=== PATIENT | male | born 1935 | race Caucasian/White ===

== ENCOUNTER 2019-10-12 08:06 | Emergency (ER) | payer MEDICARE ==
[2019-10-12 09:51] LABS: BASOPHILS % (AUTO) 0.5 % (0.0-5.0); EOSINOPHILS % (AUTO) 2.2 % (0.0-8.0); HEMATOCRIT 42.7 % (42-54); LYMPHOCYTES % (AUTO) 18.5 % (21.0-51.0); MEAN CORPUSCULAR VOLUME 93.8 fL (79-99); MONOCYTES % (AUTO) 7.9 % (3.0-13.0); NEUTROPHILS % (AUTO) 70.6 % (40.0-77.0); PLATELET COUNT (AUTO) 289 K/uL (130-400); RED BLOOD CELL COUNT(AUTO) 4.55 MIL/uL (4.50-6.20); RED CELL DISTRIBUTION WIDTH 12.6 % (11.0-15.5); WHITE BLOOD COUNT (AUTO) 5.8 K/uL (4.8-10.8)
[2019-10-12 10:01] LABS: CREATININE 1.2 mg/dL (0.5-1.5); POTASSIUM 4.8 mmol/L (3.5-5.1)
[2019-10-12 10:06] LABS: ALBUMIN 3.7 g/dL (3.5-5.0); BILIRUBIN,TOTAL 0.6 mg/dL (0.2-1.0); INR 1.03 (0.85-1.15); PARTIAL THROMBOPLASTIN TIME 25.5 SEC (26.3-35.5); PROTHROMBIN TIME 10.8 SEC (9.6-11.6)
== END 2019-10-12 12:01 | disposition left against medical advice (07) ==
LOC: EDH 08:06
DX: M79.89 Other specified soft tissue disorders (principal); Z90.49 Acquired absence of other specified parts of digestive tract; Z87.891 Personal history of nicotine dependence
CPT/HCPCS: 36415; 71046; 74176; 80053; 82550; 85025; 85378; 85610; 85730; 93971

== ENCOUNTER 2020-04-15 11:10 | Inpatient (IN) | payer MEDICARE ==
[~2020-04-15] VITALS: Ht 175.3 cm; Wt 70.8 kg
[2020-04-15 12:07] LABS: BASOPHILS % (AUTO) 0.3 % (0.0-5.0); EOSINOPHILS % (AUTO) 0.4 % (0.0-8.0); HEMATOCRIT 43.6 % (42-54); LYMPHOCYTES % (AUTO) 15.5 % (21.0-51.0); MEAN CORPUSCULAR HEMOGLOBIN 31.9 pg (27.0-33.0); MEAN CORPUSCULAR HGB CONC 33.5 g/dL (32.0-36.0); MEAN CORPUSCULAR VOLUME 95.2 fL (79-99); MONOCYTES % (AUTO) 6.1 % (3.0-13.0); PLATELET COUNT (AUTO) 314 K/uL (130-400); RED BLOOD CELL COUNT(AUTO) 4.58 MIL/uL (4.50-6.20); RED CELL DISTRIBUTION WIDTH 13.2 % (11.0-15.5); WHITE BLOOD COUNT (AUTO) 11.1 K/uL (4.8-10.8)
[2020-04-15 12:19] LABS: PROTHROMBIN TIME 10.8 SEC (9.6-11.6)
[2020-04-15 12:21] LABS: CREATININE 1.3 mg/dL (0.5-1.5); POTASSIUM 4.2 mmol/L (3.5-5.1)
[2020-04-15 12:24] LABS: ALBUMIN 3.7 g/dL (3.5-5.0); BILIRUBIN,TOTAL 0.6 mg/dL (0.2-1.0)
[2020-04-15] MEDS ORDERED: ONDANSETRON HCL 4 MG/2 ML VIAL ONE (12:30)
[2020-04-15] MEDS ORDERED: MORPHINE SULFATE 4 MG/1ML SYG ONE ×2 (12:31→15:54)
[2020-04-15] MEDS ORDERED: HYDRALAZINE HCL 20 MG/ML VIAL IV PRN (15:30)
[2020-04-15] MEDS ORDERED: HYDROMORPHONE HCL 0.5 MG/0.5 ML ML IV PRN (15:30)
[2020-04-15] MEDS ORDERED: ONDANSETRON HCL 4 MG/2 ML VIAL IV PRN (15:30)
[2020-04-15] MEDS ORDERED: FAMOTIDINE/PF 20 MG/2 ML VIAL IV ONE (20:59)
[2020-04-15] MEDS ORDERED: HEPARIN SODIUM 5000UNIT/ML 1ML VIAL ONE (20:59)
[2020-04-15] MEDS: HEPARIN SODIUM 5000UNIT/ML 1ML VIAL SQ SCH (21:00)
[2020-04-16 00:20] VITALS: BP 143/75
[2020-04-16] MEDS ORDERED: ENZA40CA PO (00:41)
[2020-04-16] MEDS: SODIUM CHLORIDE 0.9% 1000ML 1,000 ML IV SCH ×3 (02:29→18:06)
[2020-04-16] MEDS: MORPHINE SULFATE 2 MG/ML 1ML SYG IV PRN ×2 (02:30→21:26)
[2020-04-16 03:54] VITALS: BP 138/76
[2020-04-16] MEDS: HYDROMORPHONE HCL 2 MG/ML VIAL IVP PRN ×4 (04:15→23:53)
[2020-04-16 08:00] VITALS: BP 136/67
[2020-04-16] MEDS ORDERED: FAMOTIDINE/PF 20 MG/2 ML VIAL IV SCH (09:00)
[2020-04-16] MEDS: HEPARIN SODIUM 5000UNIT/ML 1ML VIAL SQ SCH ×3 (09:08→19:51)
--- NOTE | 2020-04-16 10:36 | NUR ---
COVID RAPID SCREEN IS NEGATIVE, DR INGRAM INFORMED.
[2020-04-16 12:05] VITALS: BP 134/69
[2020-04-16 16:00] VITALS: BP 140/75
[2020-04-16 19:00] VITALS: BP 142/86
[2020-04-17] VITALS (25 sets, daily range): BP systolic 112–156; BP diastolic 59–83
[2020-04-17] MEDS: HYDROMORPHONE HCL 2 MG/ML VIAL IVP PRN ×2 (00:58→06:07)
[2020-04-17 04:38] LABS: CREATININE 0.9 mg/dL (0.5-1.5); POTASSIUM 3.5 mmol/L (3.5-5.1)
[2020-04-17 04:47] LABS: ALBUMIN 3.3 g/dL (3.5-5.0); BILIRUBIN,TOTAL 1.2 mg/dL (0.2-1.0); TOTAL PROTEIN, SERUM 7.7 g/dL (6.0-8.3)
[2020-04-17 05:00] LABS: BASOPHILS % (AUTO) 0.4 % (0.0-5.0); EOSINOPHILS % (AUTO) 1.6 % (0.0-8.0); LYMPHOCYTES % (AUTO) 24.4 % (21.0-51.0); MEAN CORPUSCULAR HEMOGLOBIN 32.2 pg (27.0-33.0); MEAN CORPUSCULAR HGB CONC 33.7 g/dL (32.0-36.0); MEAN CORPUSCULAR VOLUME 95.6 fL (79-99); MONOCYTES % (AUTO) 9.2 % (3.0-13.0); PLATELET COUNT (AUTO) 227 K/uL (130-400); RED BLOOD CELL COUNT(AUTO) 4.29 MIL/uL (4.50-6.20); RED CELL DISTRIBUTION WIDTH 12.9 % (11.0-15.5); WHITE BLOOD COUNT (AUTO) 8.3 K/uL (4.8-10.8)
[2020-04-17] MEDS ORDERED: CEFAZOLIN SODIUM 1 GM VIAL ONE (07:06)
[2020-04-17] MEDS ORDERED: LACTATED RINGERS 1000ML 1,000 ML IV ONE (07:09)
[2020-04-17] MEDS: CEFAZOLIN SODIUM 1 GM VIAL IVP PRN ×2 (07:19→08:00)
[2020-04-17] MEDS ORDERED: LIDOCAINE PF 2% 5ML ABBOJECT ONE (07:26)
[2020-04-17] MEDS ORDERED: ROPIVACAINE 0.5% 5MG/ML 30ML IJ ONE ×2 (07:26→07:32)
[2020-04-17] MEDS ORDERED: ONDANSETRON HCL 4 MG/2 ML VIAL ONE (07:27)
[2020-04-17] MEDS ORDERED: PROPOFOL 10 MG/ML 20ML VIAL IV ONE (07:27)
[2020-04-17] MEDS ORDERED: ROCURONIUM 10MG/1ML SYR 10 MG/ML ML ONE (07:27)
[2020-04-17] MEDS ORDERED: FENTANYL CITRATE PF 50 MCG/1 ML 2ML VIAL ONE (07:27)
[2020-04-17] MEDS: SODIUM CHLORIDE 0.9% 1000ML 1,000 ML IV SCH ×4 (07:29→20:55)
[2020-04-17] MEDS: FAMOTIDINE 20MG TAB 20 MG TAB PO SCH ×2 (08:09→17:24)
[2020-04-17] MEDS ORDERED: EPHEDRINE SULFATE 50 MG/ML AMPULE ONE (08:18)
[2020-04-17] MEDS ORDERED: DEXAMETHASONE SOD PHOSPHATE 10MG/ML 1ML VIAL ONE (09:05)
[2020-04-17] MEDS ORDERED: GLYCOPYRROLATE 1 MG/5 ML SYRINGE ONE (09:27)
[2020-04-17] MEDS ORDERED: NEOSTIGMINE 5MG/5ML SYR IV ONE (09:27)
[2020-04-17] MEDS ORDERED: POTASSIUM CHLORIDE 20MEQ/100ML 100 ML IV PRN (09:45)
[2020-04-17] MEDS ORDERED: NALOXONE HCL 0.4 MG/1 ML ML IVP PRN (09:45)
[2020-04-17] MEDS ORDERED: POTASSIUM CHLORIDE 20 MEQ ERTAB PO PRN (09:45)
[2020-04-17] MEDS ORDERED: FERROUS FUMARATE 324 MG TABLET PO PRN (09:45)
[2020-04-17] MEDS: ACETAMINOPHEN EXTRA STRENGTH 500 MG TABLET PO SCH ×2 (09:45→17:23)
[2020-04-17] MEDS ORDERED: LIDOCAINE HCL-MPF 1% 2ML VIAL IV PRN (09:45)
[2020-04-17] MEDS ORDERED: HYDROMORPHONE PCA 10 MG/50 ML 50 ML IV PRN (09:45)
[2020-04-17] MEDS ORDERED: TEMAZEPAM 15 MG CAPSULE PO PRN (09:45)
[2020-04-17] MEDS ORDERED: DiphenhydrAMINE HCL 50 MG/ML VIAL IVP PRN (09:45)
[2020-04-17] MEDS ORDERED: DIPHENHYDRAMINE HCL 25 MG CAPSULE PO PRN (09:45)
[2020-04-17] MEDS ORDERED: CALCIUM CARBONATE 500 MG TABLET PO PRN (09:45)
[2020-04-17] MEDS ORDERED: KETOROLAC TROMETHAMINE 15MG/ML IV PRN (09:45)
[2020-04-17] MEDS ORDERED: POTASSIUM CHLORIDE 10% ELIXIR 20 MEQ/15 ML UDCUP PO PRN (09:45)
[2020-04-17] MEDS ORDERED: CEFAZOLIN SODIUM 1 GM VIAL IVP SCH (14:00)
--- NOTE | 2020-04-17 16:00 | NUR ---
IA-SPOKE WITH PATIENT FOR DC PLANNING PATIENT LIVES ALONE, HOME SAFE, STATES A FEW STEP UP TO THE DOOR, USES A WKR FOR MOBILITY AND DOES ALL HIS OWN HOUSEWORK AND MEALS NO SHOWER CHAIR , BUT HAS BARS IN THE BATH, NO PROVIDER SERVICES. ON ORAL CHEMO FOR PROSTATE CANCER, FOLLOW WITH DR. GIFFORD. FRACTURED HIP, WANT TO GO HOME, RISK/BENEFITS DISCUSSED, PATIENT STATES WILL THINK ABOUT SNF- [facility] VS [facility]. CM TO FOLLOW Addendum: 04/18/20 at 1153 by ALLI FELIX RN CM Amended: Links added.
[2020-04-17] MEDS: CEFAZOLIN SODIUM 1 GM VIAL IVP SCH (17:23)
[2020-04-17] MEDS: TAMSULOSIN HCL 0.4 MG CAP.ER.24H PO SCH (20:54)
[2020-04-17] MEDS: APIXABAN 2.5 MG TABLET PO SCH (20:54)
[2020-04-18] VITALS (8 sets, daily range): BP systolic 77–149; BP diastolic 44–77
[2020-04-18] MEDS: CEFAZOLIN SODIUM 1 GM VIAL IVP SCH (00:50)
[2020-04-18] MEDS: ACETAMINOPHEN EXTRA STRENGTH 500 MG TABLET PO SCH ×3 (01:34→17:46)
--- NOTE | 2020-04-18 04:08 | NUR ---
NOTIFIED BY TELE MONITOR, PATIENT HAD A 11 BEAT WIDE COMPLEX HR BETWEEN 118- 120 THEN BACK TO SINUS 89. PT ASSESSED, IN BED NO C/O CHEST PAIN VOICED. V/S STABLE WITH BP AT 102/64. WILL CONT TO MONITOR.
[2020-04-18 04:21] LABS: BASOPHILS % (AUTO) 0.3 % (0.0-5.0); EOSINOPHILS % (AUTO) 2.4 % (0.0-8.0); HEMATOCRIT 33.6 % (42-54); LYMPHOCYTES % (AUTO) 17.1 % (21.0-51.0); MEAN CORPUSCULAR HEMOGLOBIN 31.9 pg (27.0-33.0); MEAN CORPUSCULAR HGB CONC 33.3 g/dL (32.0-36.0); MEAN CORPUSCULAR VOLUME 95.7 fL (79-99); MONOCYTES % (AUTO) 11.5 % (3.0-13.0); PLATELET COUNT (AUTO) 194 K/uL (130-400); RED BLOOD CELL COUNT(AUTO) 3.51 MIL/uL (4.50-6.20); RED CELL DISTRIBUTION WIDTH 13.2 % (11.0-15.5); WHITE BLOOD COUNT (AUTO) 7.2 K/uL (4.8-10.8)
[2020-04-18 04:36] LABS: CREATININE 0.8 mg/dL (0.5-1.5)
[2020-04-18] MEDS: SODIUM CHLORIDE 0.9% 1000ML 1,000 ML IV SCH ×3 (05:36→21:13)
[2020-04-18] MEDS: FAMOTIDINE 20MG TAB 20 MG TAB PO SCH (08:44)
[2020-04-18] MEDS: HYDROCODONE/ACETAMINOPHEN 5/325 MG TAB PO PRN (08:45)
[2020-04-18] MEDS: POLYETHYLENE GLYCOL 3350 17 GM POWD.PACK PO SCH (08:45)
[2020-04-18] MEDS: APIXABAN 2.5 MG TABLET PO SCH ×2 (08:46→21:12)
[2020-04-18] MEDS: ENZALUTAMIDE 160 MG PO SCH (09:00)
--- NOTE | 2020-04-18 11:54 | NUR ---
ANTICIPATE DC TO SNF- [facility] WHEN CLEARED BY SURGERY Addendum: 04/18/20 at 1155 by ALLI FELIX RN CM Amended: Links added.
[2020-04-18] MEDS: TAMSULOSIN HCL 0.4 MG CAP.ER.24H PO SCH (21:12)
[2020-04-19 00:20] VITALS: BP 123/72
[2020-04-19] MEDS: ACETAMINOPHEN EXTRA STRENGTH 500 MG TABLET PO SCH ×2 (02:16→10:19)
[2020-04-19 04:07] LABS: HEMATOCRIT 33.7 % (42-54); MEAN CORPUSCULAR HGB CONC 33.2 g/dL (32.0-36.0); MEAN CORPUSCULAR VOLUME 96.3 fL (79-99); RED BLOOD CELL COUNT(AUTO) 3.5 MIL/uL (4.50-6.20); RED CELL DISTRIBUTION WIDTH 13.2 % (11.0-15.5); WHITE BLOOD COUNT (AUTO) 6.6 K/uL (4.8-10.8)
[2020-04-19 04:24] LABS: CREATININE 0.9 mg/dL (0.5-1.5); POTASSIUM 3.7 mmol/L (3.5-5.1)
[2020-04-19 04:29] VITALS: BP 123/72
[2020-04-19 08:31] VITALS: BP 142/80
[2020-04-19] MEDS: ENZALUTAMIDE 160 MG PO SCH (09:00)
[2020-04-19] MEDS ORDERED: BISACODYL 5 MG TABLET.DR PO PRN (09:45)
[2020-04-19] MEDS: HYDROCODONE/ACETAMINOPHEN 5/325 MG TAB PO PRN (10:19)
[2020-04-19] MEDS: POLYETHYLENE GLYCOL 3350 17 GM POWD.PACK PO SCH (10:19)
[2020-04-19] MEDS: FAMOTIDINE 20MG TAB 20 MG TAB PO SCH (10:19)
[2020-04-19] MEDS: APIXABAN 2.5 MG TABLET PO SCH (10:19)
[2020-04-19 11:22] VITALS: BP 112/58
[2020-04-19] MEDS: SODIUM CHLORIDE 0.9% 1000ML 1,000 ML IV SCH (11:51)
[2020-04-19] MEDS ORDERED: APIX2.5T PO (12:59)
[2020-04-19] MEDS ORDERED: HYDR-4060 PO (12:59)
[2020-04-19 16:57] VITALS: BP 128/73
--- NOTE | 2020-04-19 17:00 | NUR ---
DISCHARGE TO [facility] VIA [facility]
== END 2020-04-19 18:00 | DRG 482 ==
LOC: EDH 11:10 → EDHIP 15:29 → 3BH 04-16 00:50
PROVIDERS: ADMIT Hospitalist; ATTEND Hospitalist
PROC: 3E0T3BZ Introduction of Anesthetic Agent into Peripheral Nerves and Plexi, Percutaneous Approach (ICD-10-PCS; 2020-04-17)
PROC: 0QS606Z Reposition Right Upper Femur with Intramedullary Internal Fixation Device, Open Approach (ICD-10-PCS; principal; 2020-04-17 07:40)
DX: S72.141A Displaced intertrochanteric fracture of right femur, initial encounter for closed fracture (principal); N18.9 Chronic kidney disease, unspecified; D72.829 Elevated white blood cell count, unspecified; Z20.828 Contact with and (suspected) exposure to other viral communicable diseases; W17.89XA Other fall from one level to another, initial encounter; Y93.89 Activity, other specified; Y92.098 Other place in other non-institutional residence as the place of occurrence of the external cause; Y99.8 Other external cause status; Z85.3 Personal history of malignant neoplasm of breast; Z79.01 Long term (current) use of anticoagulants; Z85.46 Personal history of malignant neoplasm of prostate; Z86.718 Personal history of other venous thrombosis and embolism; Z90.49 Acquired absence of other specified parts of digestive tract; Z92.21 Personal history of antineoplastic chemotherapy
CPT/HCPCS: 36415; 71045; 72192; 73502; 73503; 80048; 80053; 83735; 85025; 85027; 85610; 85730; 87426; 93005; 97039; 99291; A4344; G0378; J0690; J1100; J1170; J1644; J1885; J2001; J2270; J2405; J2704; J2710; J2795; J3010; J3490; J7030; J7120